=== PATIENT | female | born 1975 | race Caucasian/White ===

== ENCOUNTER 2024-05-27 22:25 | Outpatient (BNV) | payer OTHER, SELFPAY | END 2024-05-30 09:00 | PROVIDERS: Admitting Provider Psychiatry & Neurology Psychiatry; Visit Provider Internal Medicine | DX: R00.1 Bradycardia, unspecified (principal) | CPT/HCPCS: 93010 ==

== ENCOUNTER 2024-05-27 22:25 | Inpatient (IN) | payer OTHER, SELFPAY ==
[2024-05-28 00:16] VITALS: BP 124/60; PULSE 73; RESP 16; TEMP 36.8; O2SAT 100
[2024-05-28 00:17] VITALS: BMI 32.3
[2024-05-28] MEDS: traZODone HCL 50 MG TABLET PO (02:37)
[2024-05-28] MEDS: hydrOXYzine HCL 25 MG TABLET PO (02:37)
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
[2024-05-28] MEDS: Acetaminophen 325 MG TABLET 650 MG PO ×2 (05:20→15:52)
--- NOTE | 2024-05-28 07:10 | PC.NURSE ---
[facility] CALLED THIS MORNING BY TW TO VERIFY REMY METHADONE DOSE, , SPOKE WITH NURSE MARICARMEN GIL WHO VERIFIED SHE WAS GIVEN 180MG ON THE 14TH AND 6 BOTTLES OF 18OMG EACH WAS SENT HOME WITH HER. MAINTENANCE VERIFICATION FORM PROVIDED TO PHARMACY.
[2024-05-28 07:15] VITALS: BP 99/54; PULSE 67; RESP 16; TEMP 36.4; O2SAT 99
--- NOTE | 2024-05-28 07:21 | HE.PHANOTE ---
Re Methadone Pt receives 180mg from [facility], last dose was 05/18/24 but they gave her 6 take home bottles. Last day should have been 05/24/24.
[2024-05-28] MEDS: methADONE HCl 20 MG/2 ML ORAL.CONC 180 MG PO (08:39)
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
[2024-05-28 09:17] LABS: Alanine Aminotransferase 7 U/L (0-31); Albumin Level 3.5 g/dL (3.5-5.0); Anion Gap 12 (12-20); Aspartate Amino Transferase 18 U/L (5-31); Bilirubin Total 0.3 mg/dL (0.0-1.0); Blood Urea Nitrogen 11 mg/dL (9-16); Calcium 8.7 mg/dL (8.4-10.2); Carbon Dioxide 26 mmol/L (22-29); Chloride 106 mmol/L (96-108); Creatinine Clr Calc Pharmacy 71.7; Estimated Glomerular Filt Rate > 60; Glucose Random 134 mg/dL (60-115); Potassium 3.7 mmol/L (3.3-5.1); Sodium 140 mmol/L (135-145); Total Protein 6.1 g/dL (6.5-8.0)
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
[2024-05-28 14:00] LABS: Alkaline Phosphatase 53 U/L (39-117)
[2024-05-28 16:17] VITALS: BP 133/74
[2024-05-28] MEDS: cloNIDine HCL 0.1 MG TABLET PO (16:17)
[2024-05-28] MEDS: Omeprazole 20 MG CAPSULE.DR PO (16:17)
[2024-05-28 20:00] VITALS: BP 100/60; PULSE 60; RESP 16; TEMP 36.8; O2SAT 98
[2024-05-28] MEDS: busPIRone HCl 10 MG TABLET PO (20:33)
[2024-05-28] MEDS: Ziprasidone 80 MG CAPSULE PO (20:34)
[2024-05-28] MEDS: Propranolol HCL 10 MG TABLET PO (20:34)
--- NOTE | 2024-05-28 20:48 | PC.NURSE ---
Pt refused HS Seroquel, states I have allergy to Seroquel .
[2024-05-29] MEDS: Omeprazole 20 MG CAPSULE.DR PO ×2 (06:41→16:50)
[2024-05-29 07:50] VITALS: BP 104/59; PULSE 65; RESP 12; TEMP 37.4; O2SAT 98
[2024-05-29] MEDS: Acetaminophen 325 MG TABLET 650 MG PO (07:53)
[2024-05-29] MEDS: methADONE HCl 20 MG/2 ML ORAL.CONC 180 MG PO (08:03)
[2024-05-29 08:50] VITALS: BP 108/59; PULSE 65
[2024-05-29] MEDS: buPROPion HCl XL 300 MG TAB.ER.24H PO (08:50)
[2024-05-29] MEDS: Propranolol HCL 10 MG TABLET PO ×2 (08:50→21:23)
[2024-05-29] MEDS: busPIRone HCl 10 MG TABLET PO ×2 (08:50→21:24)
[2024-05-29] MEDS: Ziprasidone 80 MG CAPSULE PO ×2 (08:51→21:23)
[2024-05-29] MEDS: Oxymetazoline HCl 0.05 % Nasal 15 ML SPRAY 2 SPRAY NOSTRIL-B (08:52)
[2024-05-29 09:04] VITALS: BP 102/60; PULSE 64
[2024-05-29] MEDS: cloNIDine HCL 0.1 MG TABLET PO (09:08)
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
[2024-05-29] MEDS: Pseudoephedrine HCL 30 MG TABLET PO ×2 (10:36→16:52)
[2024-05-29 12:00] LABS: Cholesterol 147 mg/dL (<200); HDL Cholesterol 55 mg/dL (>40); LDL Cholesterol Calculated 75 mg/dL (<100); Triglycerides 85 mg/dL (<150)
[2024-05-29 12:03] LABS: Estimated Average Glucose 100 mg/dL; Hemoglobin A1C 103.6012 umol/L; Hemoglobin A1c % 5.1 % (<6.0); Total Hemoglobin (HGBA1C) 3256.6014 umol/L
[2024-05-29 12:15] LABS: Thyroid Stimulating Hormone 1.16 uIU/mL (0.32-4.0)
--- NOTE | 2024-05-29 16:43 | PC.NURSE ---
Pt requested PRN Clonidine for anxiety. RN assessed pt's BP 88/54 HR 63. RN encouraged pt to drink fluids and eat snacks, pt verbalized understanding. Informed pt BP would be rechecked following increased fluid intake.
[2024-05-29 16:55] VITALS: BP 88/54; PULSE 63
--- NOTE | 2024-05-29 16:55 | PC.NURSE ---
Addendum entered by Maria Del Carmen Roberts RN 05/29/24 18:07: BP rechecked at 1807, 100/56 HR 64. Pt declined dizziness/lightheadedness. Pt declined clonidine because I feel fine and it's not happening right now. Pt declined to elaborate on what was happening. Original Note: Pt requested PRN Clonidine for anxiety. RN assessed pt's BP 88/54 HR 63. RN informed pt clonidine would be held at this time d/t decreased BP. RN encouraged pt to drink fluids and eat snacks, pt verbalized understanding. Informed pt BP would be rechecked following increased fluid intake.
[2024-05-29] MEDS: hydrOXYzine HCL 50 MG TABLET PO (17:18)
[2024-05-29] MEDS: Nicotine Polacrilex 2 MG GUM 4 MG BUCCAL (17:24)
[2024-05-29 20:00] VITALS: BP 107/60; PULSE 62; RESP 18; TEMP 37.1; O2SAT 96
[2024-05-29 21:23] VITALS: BP 100/60; PULSE 80
[2024-05-30] MEDS: Omeprazole 20 MG CAPSULE.DR PO ×2 (06:28→15:32)
[2024-05-30 07:50] VITALS: BP 92/50; PULSE 59; RESP 14; TEMP 36.6; O2SAT 97
[2024-05-30] MEDS: methADONE HCl 20 MG/2 ML ORAL.CONC 180 MG PO (08:15)
[2024-05-30] MEDS: busPIRone HCl 10 MG TABLET PO ×2 (09:00→21:12)
[2024-05-30] MEDS: Ziprasidone 80 MG CAPSULE PO ×2 (09:00→21:12)
[2024-05-30] MEDS: buPROPion HCl XL 300 MG TAB.ER.24H PO (09:00)
[2024-05-30] MEDS: Pseudoephedrine HCL 30 MG TABLET PO ×2 (09:00→15:32)
--- NOTE | 2024-05-30 09:00 | ECG_ITS ---
Test Reason : QTc interval Blood Pressure : */* mmHG Vent. Rate : 52 BPM Atrial Rate : 52 BPM P-R Int : 150 ms QRS Dur : 82 ms QT Int : 468 ms P-R-T Axes : 55 63 48 degrees QTcB Int : 435 ms Sinus bradycardia Possible Left atrial enlargement Borderline ECG No previous ECGs available Referred By: Newton March Electronically Signed By: TERRIE DUENAS
[2024-05-30] MEDS: Nicotine 21 MG PATCH.TD24 TRANSDERMA (09:01)
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
[2024-05-30 15:29] VITALS: BP 120/64; PULSE 73
[2024-05-30] MEDS: cloNIDine HCL 0.1 MG TABLET PO (15:32)
[2024-05-30 20:00] VITALS: BP 94/60; PULSE 71; RESP 16; TEMP 36.5; O2SAT 99
[2024-05-30] MEDS: Propranolol HCL 10 MG TABLET PO (21:12)
[2024-05-31] MEDS: Omeprazole 20 MG CAPSULE.DR PO ×2 (06:33→15:40)
[2024-05-31 07:42] VITALS: BP 111/66; PULSE 66; RESP 16; TEMP 36.4; O2SAT 99
[2024-05-31] MEDS: methADONE HCl 20 MG/2 ML ORAL.CONC 180 MG PO (08:00)
[2024-05-31] MEDS: busPIRone HCl 10 MG TABLET PO ×2 (08:38→20:53)
[2024-05-31] MEDS: Ziprasidone 80 MG CAPSULE PO (08:38)
[2024-05-31] MEDS: Propranolol HCL 10 MG TABLET PO ×2 (08:38→20:53)
[2024-05-31] MEDS: buPROPion HCl XL 300 MG TAB.ER.24H PO (08:38)
[2024-05-31] MEDS: Nicotine 21 MG PATCH.TD24 TRANSDERMA (09:49)
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
[2024-05-31] MEDS: risperiDONE 1 MG TABLET PO ×3 (11:33→20:53)
[2024-05-31 15:42] VITALS: BP 100/62
[2024-05-31] MEDS: cloNIDine HCL 0.1 MG TABLET PO (15:42)
[2024-05-31] MEDS: Pseudoephedrine HCL 30 MG TABLET PO (17:13)
[2024-05-31 20:00] VITALS: BP 105/60; PULSE 74; TEMP 36.5; O2SAT 100
[2024-05-31 20:53] VITALS: BP 100/57; PULSE 74
[2024-06-01] MEDS: Omeprazole 20 MG CAPSULE.DR PO ×2 (05:45→16:50)
[2024-06-01 07:32] VITALS: BP 90/56; PULSE 82; RESP 16; TEMP 36.4; O2SAT 99
[2024-06-01] MEDS: methADONE HCl 20 MG/2 ML ORAL.CONC 180 MG PO (07:53)
[2024-06-01] MEDS: Nicotine 21 MG PATCH.TD24 TRANSDERMA (08:26)
[2024-06-01] MEDS: busPIRone HCl 10 MG TABLET PO ×2 (08:26→20:14)
[2024-06-01] MEDS: risperiDONE 1 MG TABLET PO (08:26)
[2024-06-01] MEDS: buPROPion HCl XL 300 MG TAB.ER.24H PO (08:26)
[2024-06-01] MEDS: hydrOXYzine HCL 50 MG TABLET PO (08:34)
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
[2024-06-01 20:00] VITALS: BP 102/54; PULSE 62; RESP 16; TEMP 36.9; O2SAT 94
[2024-06-01] MEDS: risperiDONE 3 MG TABLET PO (20:13)
[2024-06-02] MEDS: Omeprazole 20 MG CAPSULE.DR PO ×2 (05:53→16:19)
[2024-06-02 07:34] VITALS: BP 113/67; PULSE 72; RESP 16; TEMP 36.5; O2SAT 98
[2024-06-02] MEDS: methADONE HCl 20 MG/2 ML ORAL.CONC 180 MG PO (07:55)
[2024-06-02] MEDS: cloNIDine HCL 0.1 MG TABLET PO ×2 (08:04→14:52)
[2024-06-02] MEDS: busPIRone HCl 10 MG TABLET PO ×2 (08:05→21:11)
[2024-06-02] MEDS: Propranolol HCL 10 MG TABLET PO ×2 (08:05→21:11)
[2024-06-02] MEDS: risperiDONE 1 MG TABLET PO ×2 (08:05→14:46)
[2024-06-02] MEDS: buPROPion HCl XL 300 MG TAB.ER.24H PO (08:05)
[2024-06-02 14:52] VITALS: BP 125/72
[2024-06-02] MEDS: Nicotine 21 MG PATCH.TD24 TRANSDERMA (14:53)
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
[2024-06-02 20:00] VITALS: BP 101/59; PULSE 76; RESP 16; TEMP 36.6; O2SAT 97
[2024-06-02] MEDS: risperiDONE 3 MG TABLET PO (21:11)
[2024-06-03] MEDS: Omeprazole 20 MG CAPSULE.DR PO ×2 (06:29→16:54)
[2024-06-03 07:00] VITALS: BMI 32.9
[2024-06-03 07:43] VITALS: BP 133/61; PULSE 61; RESP 18; TEMP 36.4; O2SAT 99
[2024-06-03] MEDS: methADONE HCl 20 MG/2 ML ORAL.CONC 180 MG PO (07:51)
[2024-06-03] MEDS: buPROPion HCl XL 300 MG TAB.ER.24H PO (08:18)
[2024-06-03] MEDS: busPIRone HCl 10 MG TABLET PO ×2 (08:19→20:42)
[2024-06-03] MEDS: Propranolol HCL 10 MG TABLET PO ×2 (08:19→20:42)
[2024-06-03] MEDS: risperiDONE 2 MG TABLET PO (08:19)
[2024-06-03] MEDS: cloNIDine HCL 0.1 MG TABLET PO ×2 (08:29→16:59)
[2024-06-03] MEDS: Nicotine 21 MG PATCH.TD24 TRANSDERMA (12:42)
[2024-06-03] MEDS: hydrOXYzine HCL 50 MG TABLET PO ×2 (12:45→20:42)
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
[2024-06-03 16:59] VITALS: BP 126/82
[2024-06-03 20:00] VITALS: BP 110/62; PULSE 66; RESP 16; TEMP 36.8; O2SAT 97
[2024-06-03] MEDS: risperiDONE 3 MG TABLET PO (20:42)
[2024-06-04] MEDS: Omeprazole 20 MG CAPSULE.DR PO ×2 (06:22→16:57)
[2024-06-04 06:48] VITALS: BP 84/60; PULSE 68
[2024-06-04 07:40] VITALS: BP 104/58; PULSE 73; RESP 16; TEMP 36.4; O2SAT 97
[2024-06-04] MEDS: methADONE HCl 20 MG/2 ML ORAL.CONC 180 MG PO (07:42)
[2024-06-04 08:05] VITALS: BP 104/58; PULSE 73
[2024-06-04] MEDS: busPIRone HCl 10 MG TABLET PO ×2 (08:05→20:38)
[2024-06-04] MEDS: risperiDONE 2 MG TABLET PO (08:05)
[2024-06-04] MEDS: Propranolol HCL 10 MG TABLET PO ×2 (08:05→20:38)
[2024-06-04] MEDS: buPROPion HCl XL 300 MG TAB.ER.24H PO (08:06)
[2024-06-04 08:55] VITALS: BP 105/56; PULSE 64
[2024-06-04 10:02] VITALS: BP 108/58
[2024-06-04] MEDS: cloNIDine HCL 0.1 MG TABLET PO ×2 (10:02→20:37)
[2024-06-04] MEDS: hydrOXYzine HCL 50 MG TABLET PO (17:04)
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
[2024-06-04 20:00] VITALS: BP 93/60; PULSE 66; RESP 16; TEMP 36.8; O2SAT 96
[2024-06-04] MEDS: risperiDONE 2 MG TABLET 4 MG PO (20:38)
[2024-06-05] MEDS: Omeprazole 20 MG CAPSULE.DR PO ×2 (06:25→16:50)
[2024-06-05 07:41] VITALS: BP 89/48; PULSE 66; RESP 14; TEMP 36.8; O2SAT 94
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
[2024-06-05] MEDS: methADONE HCl 20 MG/2 ML ORAL.CONC 180 MG PO (09:29)
[2024-06-05] MEDS: busPIRone HCl 10 MG TABLET PO ×2 (09:39→20:26)
[2024-06-05] MEDS: Propranolol HCL 10 MG TABLET PO ×2 (09:39→20:26)
[2024-06-05 09:40] VITALS: BP 104/60; PULSE 68; RESP 16; TEMP 36.9; O2SAT 96
[2024-06-05] MEDS: buPROPion HCl XL 300 MG TAB.ER.24H PO (09:40)
[2024-06-05] MEDS: risperiDONE 2 MG TABLET PO (09:40)
[2024-06-05] MEDS: cloNIDine HCL 0.1 MG TABLET PO ×2 (09:42→16:56)
[2024-06-05 16:56] VITALS: BP 124/67
[2024-06-05 20:00] VITALS: BP 96/60; PULSE 63; RESP 16; TEMP 36.4; O2SAT 97
[2024-06-05] MEDS: risperiDONE 2 MG TABLET 4 MG PO (20:26)
[2024-06-06] MEDS: Omeprazole 20 MG CAPSULE.DR PO ×2 (06:45→16:46)
[2024-06-06 07:43] VITALS: BP 105/56; PULSE 68; RESP 16; TEMP 36.4; O2SAT 97
[2024-06-06] MEDS: methADONE HCl 20 MG/2 ML ORAL.CONC 180 MG PO (08:41)
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
[2024-06-06] MEDS: Propranolol HCL 10 MG TABLET PO ×2 (09:44→20:12)
[2024-06-06] MEDS: buPROPion HCl XL 300 MG TAB.ER.24H PO (09:44)
[2024-06-06] MEDS: risperiDONE 2 MG TABLET PO (09:44)
[2024-06-06] MEDS: busPIRone HCl 10 MG TABLET PO ×2 (09:45→20:12)
[2024-06-06 09:51] VITALS: BP 99/58
[2024-06-06] MEDS: cloNIDine HCL 0.1 MG TABLET PO ×2 (09:51→16:51)
[2024-06-06 14:15] LABS: Influenza A PCR NEGATIVE (Negative); Influenza B PCR NEGATIVE (Negative); Resp Syncy Virus RNA Qual PCR NEGATIVE (Negative); SARS COV2 PCR INHOUSE NEGATIVE (Negative)
[2024-06-06 16:51] VITALS: BP 94/64
[2024-06-06 20:00] VITALS: BP 96/60; PULSE 63; RESP 16; TEMP 36.6; O2SAT 97
[2024-06-06] MEDS: risperiDONE 2 MG TABLET 4 MG PO (20:12)
[2024-06-07] MEDS: Omeprazole 20 MG CAPSULE.DR PO ×2 (05:59→16:52)
[2024-06-07 07:30] VITALS: BP 92/54; PULSE 62; RESP 14; TEMP 36.7; O2SAT 95
[2024-06-07] MEDS: methADONE HCl 20 MG/2 ML ORAL.CONC 180 MG PO (08:09)
[2024-06-07] MEDS: risperiDONE 2 MG TABLET PO (09:18)
[2024-06-07] MEDS: buPROPion HCl XL 300 MG TAB.ER.24H PO (09:18)
[2024-06-07] MEDS: busPIRone HCl 10 MG TABLET PO ×2 (09:18→21:46)
[2024-06-07 09:44] VITALS: BP 101/52; PULSE 62
[2024-06-07 09:46] VITALS: BP 101/52; PULSE 62
[2024-06-07] MEDS: Propranolol HCL 10 MG TABLET PO ×2 (09:46→21:46)
[2024-06-07] MEDS: hydrOXYzine HCL 50 MG TABLET PO (09:49)
[2024-06-07 11:22] VITALS: BP 122/70
[2024-06-07] MEDS: cloNIDine HCL 0.1 MG TABLET PO ×2 (11:22→16:56)
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
[2024-06-07 16:55] VITALS: BP 110/69; TEMP 15
[2024-06-07] MEDS: OLANZapine ODT 10 MG TAB.RAPDIS 30 MG TRANSLINGU (21:43)
[2024-06-07 21:44] VITALS: BP 110/60; PULSE 86; RESP 18; TEMP 36.9; O2SAT 96
[2024-06-07] MEDS: guaiFENesin DM 200/20/10 ML 10 ML SYRUP PO (21:46)
[2024-06-08] MEDS: Omeprazole 20 MG CAPSULE.DR PO ×2 (06:22→16:14)
[2024-06-08 08:00] VITALS: BP 106/52; PULSE 62; RESP 16; TEMP 36.5; O2SAT 98
[2024-06-08] MEDS: methADONE HCl 20 MG/2 ML ORAL.CONC 180 MG PO (08:13)
[2024-06-08 08:46] VITALS: BP 106/52; PULSE 62
[2024-06-08] MEDS: buPROPion HCl XL 300 MG TAB.ER.24H PO (08:46)
[2024-06-08] MEDS: Propranolol HCL 10 MG TABLET PO ×2 (08:46→20:38)
[2024-06-08] MEDS: busPIRone HCl 10 MG TABLET PO ×2 (08:47→20:38)
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
[2024-06-08 12:41] LABS: Influenza A PCR NEGATIVE (Negative); Influenza B PCR NEGATIVE (Negative); Resp Syncy Virus RNA Qual PCR NEGATIVE (Negative); SARS COV2 PCR INHOUSE NEGATIVE (Negative)
[2024-06-08 13:25] VITALS: BP 129/71
[2024-06-08] MEDS: cloNIDine HCL 0.1 MG TABLET PO (13:25)
[2024-06-08 20:00] VITALS: BP 116/63; PULSE 67; TEMP 36.8; O2SAT 95
[2024-06-08 20:38] VITALS: BP 116/63; PULSE 81
[2024-06-08] MEDS: OLANZapine ODT 10 MG TAB.RAPDIS 30 MG TRANSLINGU (20:38)
[2024-06-09] MEDS: Omeprazole 20 MG CAPSULE.DR PO ×2 (06:23→17:12)
[2024-06-09 07:53] VITALS: BP 112/73; PULSE 69; RESP 14; TEMP 36.6; O2SAT 98
[2024-06-09] MEDS: methADONE HCl 20 MG/2 ML ORAL.CONC 180 MG PO (08:28)
[2024-06-09] MEDS: busPIRone HCl 10 MG TABLET PO ×2 (08:55→20:53)
[2024-06-09] MEDS: Propranolol HCL 10 MG TABLET PO ×2 (08:55→20:53)
[2024-06-09] MEDS: buPROPion HCl XL 300 MG TAB.ER.24H PO (08:55)
[2024-06-09] MEDS: cloNIDine HCL 0.1 MG TABLET PO ×2 (09:38→15:22)
[2024-06-09] MEDS: Nicotine 21 MG PATCH.TD24 TRANSDERMA (15:22)
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
[2024-06-09 20:00] VITALS: BP 121/63; PULSE 75; RESP 16; TEMP 37.1; O2SAT 96
[2024-06-09] MEDS: OLANZapine ODT 10 MG TAB.RAPDIS 30 MG TRANSLINGU (20:52)
[2024-06-10] MEDS: Omeprazole 20 MG CAPSULE.DR PO ×2 (06:53→16:49)
[2024-06-10 07:00] VITALS: BMI 33.7
[2024-06-10 08:00] VITALS: BP 93/54; PULSE 61; RESP 16; TEMP 36.9; O2SAT 98
[2024-06-10] MEDS: methADONE HCl 20 MG/2 ML ORAL.CONC 180 MG PO (09:20)
[2024-06-10 09:21] VITALS: BP 109/64; PULSE 61
[2024-06-10] MEDS: busPIRone HCl 10 MG TABLET PO ×2 (09:21→20:30)
[2024-06-10] MEDS: cloNIDine HCL 0.1 MG TABLET PO ×2 (09:21→14:18)
[2024-06-10] MEDS: Propranolol HCL 10 MG TABLET PO ×2 (09:21→20:30)
[2024-06-10] MEDS: Nicotine 21 MG PATCH.TD24 TRANSDERMA (09:22)
[2024-06-10] MEDS: buPROPion HCl XL 300 MG TAB.ER.24H PO (09:22)
[2024-06-10] MEDS: Lithium Carbonate ER 450 MG TABLET.ER PO ×2 (12:08→20:30)
[2024-06-10 14:18] VITALS: BP 95/61
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
[2024-06-10 20:00] VITALS: BP 106/61; PULSE 62; RESP 16; TEMP 36.4; O2SAT 97
[2024-06-10] MEDS: OLANZapine ODT 10 MG TAB.RAPDIS 30 MG TRANSLINGU (20:30)
[2024-06-11] MEDS: Omeprazole 20 MG CAPSULE.DR PO ×2 (06:33→17:00)
[2024-06-11 07:56] VITALS: BP 98/50; PULSE 66; RESP 14; TEMP 36.7; O2SAT 97
[2024-06-11] MEDS: methADONE HCl 20 MG/2 ML ORAL.CONC 180 MG PO (08:11)
[2024-06-11] MEDS: busPIRone HCl 10 MG TABLET PO ×2 (08:29→21:34)
[2024-06-11] MEDS: Lithium Carbonate ER 450 MG TABLET.ER PO ×2 (08:29→21:33)
[2024-06-11] MEDS: Propranolol HCL 10 MG TABLET PO ×2 (08:29→21:33)
[2024-06-11] MEDS: buPROPion HCl XL 300 MG TAB.ER.24H PO (08:29)
[2024-06-11 10:21] VITALS: BP 136/68
[2024-06-11] MEDS: cloNIDine HCL 0.1 MG TABLET PO (10:21)
[2024-06-11 14:06] LABS: Appearance Urine Clear; Color Urine Yellow; Glucose Urine UA Negative (Negative); Leukocyte Esterase Urine Moderate (2+) (Negative); Nitrite Urine Negative (Negative); UMIC TRIGGER UACC YES; Urine Blood Negative (Negative); Urine Ketones Trace mg/dL (Negative); Urine Protein Negative (Neg-Trace)
[2024-06-11 14:13] LABS: Bacteria Urine 1+ (None Seen); Hyaline Casts Urine 0-2 /LPF (0-2); RBC Urine 0-2 /HPF (0-2); Squamous Epithelial Cell Urine 0-2 /HPF (0-2); UACC Culture Trigger YES
[2024-06-11] MEDS: Nitrofurantoin Monohyd/M-Cryst 100 MG CAPSULE PO (14:34)
[2024-06-11 14:56] LABS: MANUAL DIFF FLAG NO
[2024-06-11 14:58] LABS: Basophils Absolute Auto 0.1 X10*3/uL (0.0-0.2); Basophils Percent Auto 0.6 % (0-2); Eosinophils Absolute Auto 0.3 X10*3/uL (0.0-0.4); Eosinophils Percent Auto 3.3 % (0-4); Hematocrit 37.1 % (37.0-47.0); Hemoglobin 12.1 g/dl (12.0-16.0); Imm Gran Abs Auto 0.04 X10*3/uL (0.00-0.03); Imm Gran Pct Auto 0.4 % (0.0-0.4); Lymphocytes Absolute Auto 2.3 X10*3/uL (1.2-4.9); Lymphocytes Percent Auto 23.2 % (20-40); Mean Corpuscular HGB Conc 32.6 g/dl (31.0-35.0); Mean Corpuscular Hemoglobin 28.1 pg (27.0-33.0); Mean Corpuscular Volume 86.3 fL (80.0-98.0); Mean Platelet Volume 9.3 fL (9.4-12.3); Monocytes Absolute Auto 0.6 X10*3/uL (0.1-1.2); Monocytes Percent Auto 5.9 % (2-11); Neutrophils Absolute Auto 6.6 x10*3/uL (2.0-8.3); Neutrophils Percent Auto 66.6 % (45-73); Platelet Count 320 X10*3/uL (160-400); Red Cell Distribution Width 13.5 % (11.0-16.0); White Blood Count 9.9 X10*3/uL (4.8-10.8)
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
[2024-06-11 15:15] LABS: Anion Gap 12 (12-20); Blood Urea Nitrogen 19 mg/dL (9-16); Calcium 9.3 mg/dL (8.4-10.2); Carbon Dioxide 27 mmol/L (22-29); Chloride 108 mmol/L (96-108); Creatinine Clr Calc Pharmacy 74.1; Estimated Glomerular Filt Rate > 60; Glucose Random 94 mg/dL (60-115); Potassium 4.4 mmol/L (3.3-5.1); Sodium 143 mmol/L (135-145)
[2024-06-11 20:00] VITALS: BP 96/58; PULSE 62; RESP 16; TEMP 36.4; O2SAT 96
[2024-06-11 21:33] VITALS: BP 96/58; PULSE 62
[2024-06-11] MEDS: OLANZapine ODT 10 MG TAB.RAPDIS 20 MG TRANSLINGU (21:33)
[2024-06-12] MEDS: Nitrofurantoin Monohyd/M-Cryst 100 MG CAPSULE PO ×2 (01:57→22:13)
[2024-06-12] MEDS: Omeprazole 20 MG CAPSULE.DR PO ×2 (06:33→15:56)
[2024-06-12] MEDS: methADONE HCl 20 MG/2 ML ORAL.CONC 180 MG PO (08:05)
[2024-06-12 08:20] VITALS: BP 105/58; PULSE 63; RESP 14; TEMP 36.4; O2SAT 96
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
[2024-06-12 09:15] VITALS: BP 108/62; PULSE 66
[2024-06-12] MEDS: busPIRone HCl 10 MG TABLET PO ×2 (09:15→20:22)
[2024-06-12] MEDS: buPROPion HCl XL 300 MG TAB.ER.24H PO (09:15)
[2024-06-12] MEDS: Lithium Carbonate ER 450 MG TABLET.ER PO ×2 (09:15→20:23)
[2024-06-12] MEDS: Propranolol HCL 10 MG TABLET PO ×2 (09:15→20:22)
[2024-06-12 09:19] VITALS: BP 108/62; PULSE 66
[2024-06-12] MEDS: cloNIDine HCL 0.1 MG TABLET PO ×2 (09:31→15:20)
[2024-06-12] MEDS: Nicotine 21 MG PATCH.TD24 TRANSDERMA (09:31)
[2024-06-12] MEDS: guaiFENesin DM 200/20/10 ML 10 ML SYRUP PO (09:31)
[2024-06-12 15:20] VITALS: BP 108/54
[2024-06-12 20:00] VITALS: BP 110/70; PULSE 70; RESP 18; TEMP 36.8; O2SAT 96
[2024-06-12 20:22] VITALS: BP 110/70; PULSE 70
[2024-06-12] MEDS: OLANZapine ODT 10 MG TAB.RAPDIS 20 MG TRANSLINGU (20:24)
[2024-06-13] MEDS: Omeprazole 20 MG CAPSULE.DR PO ×2 (06:35→16:43)
[2024-06-13 07:52] VITALS: BP 104/56; PULSE 64; RESP 16; TEMP 36.3; O2SAT 97
[2024-06-13] MEDS: methADONE HCl 20 MG/2 ML ORAL.CONC 180 MG PO (07:56)
[2024-06-13 08:04] VITALS: BP 137/94; PULSE 79; RESP 16; TEMP 36.5; O2SAT 98
[2024-06-13] MEDS: Nicotine 21 MG PATCH.TD24 TRANSDERMA (08:47)
[2024-06-13] MEDS: buPROPion HCl XL 300 MG TAB.ER.24H PO (08:47)
[2024-06-13] MEDS: busPIRone HCl 10 MG TABLET PO ×2 (08:47→20:20)
[2024-06-13] MEDS: Propranolol HCL 10 MG TABLET PO ×2 (08:47→20:20)
[2024-06-13] MEDS: Lithium Carbonate ER 450 MG TABLET.ER PO ×2 (08:48→20:20)
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
[2024-06-13 09:56] VITALS: BP 126/69
[2024-06-13] MEDS: cloNIDine HCL 0.1 MG TABLET PO ×2 (09:56→17:04)
[2024-06-13] MEDS: Nitrofurantoin Monohyd/M-Cryst 100 MG CAPSULE PO ×2 (09:56→20:24)
[2024-06-13 17:04] VITALS: BP 111/60
[2024-06-13 20:00] VITALS: BP 128/67; PULSE 66; RESP 18; TEMP 36.7; O2SAT 96
[2024-06-13] MEDS: OLANZapine ODT 10 MG TAB.RAPDIS 20 MG TRANSLINGU (20:20)
[2024-06-13] MEDS: Mineral Oil/Petrolatum,White 106 GM Tube 1 APPL TOPICAL (22:12)
[2024-06-14] MEDS: Omeprazole 20 MG CAPSULE.DR PO ×2 (06:41→15:36)
[2024-06-14 07:48] VITALS: BP 107/59; PULSE 74; RESP 14; TEMP 36.4; O2SAT 95
[2024-06-14] MEDS: methADONE HCl 20 MG/2 ML ORAL.CONC 180 MG PO (08:01)
[2024-06-14] MEDS: Propranolol HCL 10 MG TABLET PO (08:46)
[2024-06-14] MEDS: buPROPion HCl XL 300 MG TAB.ER.24H PO (08:46)
[2024-06-14] MEDS: busPIRone HCl 10 MG TABLET PO ×2 (08:47→21:01)
[2024-06-14] MEDS: Nicotine 21 MG PATCH.TD24 TRANSDERMA (08:47)
[2024-06-14 10:59] LABS: Lithium 0.79 mmol/L (0.60-1.20)
[2024-06-14] MEDS: Nitrofurantoin Monohyd/M-Cryst 100 MG CAPSULE PO ×2 (11:12→21:00)
[2024-06-14] MEDS: Lithium Carbonate ER 450 MG TABLET.ER PO ×2 (11:12→21:00)
[2024-06-14 11:39] VITALS: BP 96/54
[2024-06-14] MEDS: cloNIDine HCL 0.1 MG TABLET PO ×2 (11:39→19:19)
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
[2024-06-14 19:15] VITALS: BP 111/55; PULSE 65; RESP 18; TEMP 36.2; O2SAT 97
[2024-06-14 19:19] VITALS: BP 111/55
[2024-06-14] MEDS: OLANZapine ODT 10 MG TAB.RAPDIS 20 MG TRANSLINGU (21:00)
[2024-06-14] MEDS: Artificial Tears 15 ML DROPS 2 DROP EYE-BOTH (21:13)
[2024-06-14 21:35] VITALS: BP 89/52; PULSE 57
[2024-06-14] MEDS: Mineral Oil/Petrolatum,White 106 GM Tube 1 APPL TOPICAL (21:35)
[2024-06-15] MEDS: Omeprazole 20 MG CAPSULE.DR PO ×2 (06:36→17:28)
[2024-06-15 07:35] VITALS: BP 130/85; PULSE 70; RESP 16; TEMP 36.7; O2SAT 98
[2024-06-15] MEDS: methADONE HCl 20 MG/2 ML ORAL.CONC 180 MG PO (08:13)
[2024-06-15 09:04] VITALS: BP 103/59; PULSE 72
[2024-06-15] MEDS: Lithium Carbonate ER 450 MG TABLET.ER PO ×2 (09:06→20:45)
[2024-06-15] MEDS: Propranolol HCL 10 MG TABLET PO ×2 (09:06→20:45)
[2024-06-15] MEDS: buPROPion HCl XL 300 MG TAB.ER.24H PO (09:07)
[2024-06-15] MEDS: Nitrofurantoin Monohyd/M-Cryst 100 MG CAPSULE PO ×2 (09:07→22:15)
[2024-06-15] MEDS: cloNIDine HCL 0.1 MG TABLET PO ×2 (09:07→14:31)
[2024-06-15] MEDS: busPIRone HCl 10 MG TABLET PO ×2 (09:07→20:45)
[2024-06-15] MEDS: Nicotine 21 MG PATCH.TD24 TRANSDERMA (09:08)
[2024-06-15] MEDS: Artificial Tears 15 ML DROPS 2 DROP EYE-BOTH ×2 (12:25→22:19)
[2024-06-15 14:29] VITALS: BP 99/58; PULSE 65; O2SAT 100
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
[2024-06-15 20:00] VITALS: BP 102/60; PULSE 63; RESP 16; TEMP 36.3; O2SAT 96
[2024-06-15] MEDS: OLANZapine ODT 10 MG TAB.RAPDIS 20 MG TRANSLINGU (20:44)
[2024-06-16 04:47] VITALS: BP 99/57
[2024-06-16] MEDS: cloNIDine HCL 0.1 MG TABLET PO ×2 (04:47→14:58)
[2024-06-16] MEDS: Omeprazole 20 MG CAPSULE.DR PO ×2 (06:55→16:30)
[2024-06-16 07:40] VITALS: BP 96/51; PULSE 67; RESP 14; TEMP 36.6; O2SAT 96
[2024-06-16] MEDS: methADONE HCl 20 MG/2 ML ORAL.CONC 180 MG PO (08:22)
[2024-06-16] MEDS: buPROPion HCl XL 300 MG TAB.ER.24H PO (08:39)
[2024-06-16] MEDS: Lithium Carbonate ER 450 MG TABLET.ER PO ×2 (08:39→20:36)
[2024-06-16] MEDS: busPIRone HCl 10 MG TABLET PO ×2 (08:39→20:36)
[2024-06-16 08:40] VITALS: BP 110/58; PULSE 60
[2024-06-16] MEDS: Propranolol HCL 10 MG TABLET PO ×2 (08:40→20:34)
[2024-06-16] MEDS: Nitrofurantoin Monohyd/M-Cryst 100 MG CAPSULE PO (09:07)
[2024-06-16] MEDS: Artificial Tears 15 ML DROPS 2 DROP EYE-BOTH ×2 (09:50→20:36)
[2024-06-16 12:39] LABS: Lithium 1.19 mmol/L (0.60-1.20)
[2024-06-16 12:46] LABS: Anion Gap 9 (12-20); Blood Urea Nitrogen 16 mg/dL (9-16); Carbon Dioxide 30 mmol/L (22-29); Chloride 103 mmol/L (96-108); Creatinine Clr Calc Pharmacy 74.9; Estimated Glomerular Filt Rate > 60; Glucose Random 75 mg/dL (60-115); Potassium 4.4 mmol/L (3.3-5.1); Sodium 138 mmol/L (135-145)
[2024-06-16 14:58] VITALS: BP 110/54
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
[2024-06-16] MEDS: hydrOXYzine HCL 50 MG TABLET PO (16:30)
[2024-06-16 20:00] VITALS: BP 106/60; PULSE 69; RESP 16; TEMP 36.6; O2SAT 96
[2024-06-16] MEDS: OLANZapine ODT 10 MG TAB.RAPDIS 20 MG TRANSLINGU (20:35)
[2024-06-17] MEDS: Omeprazole 20 MG CAPSULE.DR PO ×2 (06:39→16:12)
[2024-06-17 07:00] VITALS: BMI 35.4
[2024-06-17 07:47] VITALS: BP 119/67; PULSE 67; RESP 14; TEMP 36.2; O2SAT 97
[2024-06-17] MEDS: methADONE HCl 20 MG/2 ML ORAL.CONC 180 MG PO (08:00)
[2024-06-17] MEDS: Nicotine 21 MG PATCH.TD24 TRANSDERMA (08:50)
[2024-06-17] MEDS: busPIRone HCl 10 MG TABLET PO ×2 (08:50→21:38)
[2024-06-17] MEDS: buPROPion HCl XL 300 MG TAB.ER.24H PO (08:50)
[2024-06-17] MEDS: Lithium Carbonate ER 450 MG TABLET.ER PO (08:50)
[2024-06-17 08:57] VITALS: BP 119/67; PULSE 67
[2024-06-17] MEDS: Propranolol HCL 10 MG TABLET PO ×2 (08:57→21:38)
[2024-06-17 08:58] VITALS: BP 119/67
[2024-06-17] MEDS: cloNIDine HCL 0.1 MG TABLET PO ×2 (08:58→13:50)
[2024-06-17] MEDS: Magnesium Hydrox/Alum Hydrox 30 ML ORAL.SUSP PO (11:54)
[2024-06-17 13:49] VITALS: BP 110/57; PULSE 72; TEMP 36.7
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
[2024-06-17 21:00] VITALS: BP 110/68; PULSE 70; TEMP 36.6; O2SAT 98
[2024-06-17] MEDS: OLANZapine ODT 10 MG TAB.RAPDIS 20 MG TRANSLINGU (21:38)
[2024-06-18] MEDS: Omeprazole 20 MG CAPSULE.DR PO ×2 (06:37→16:20)
[2024-06-18 07:35] VITALS: BP 107/53; PULSE 64; RESP 14; TEMP 36.5; O2SAT 97
[2024-06-18] MEDS: methADONE HCl 20 MG/2 ML ORAL.CONC 180 MG PO (08:06)
[2024-06-18] MEDS: Lithium Carbonate ER 300 MG TABLET.ER PO (08:27)
[2024-06-18] MEDS: Nicotine 21 MG PATCH.TD24 TRANSDERMA (08:27)
[2024-06-18] MEDS: busPIRone HCl 10 MG TABLET PO ×2 (08:27→20:12)
[2024-06-18] MEDS: buPROPion HCl XL 300 MG TAB.ER.24H PO (08:27)
[2024-06-18 08:29] VITALS: BP 107/53
[2024-06-18 11:26] VITALS: BP 113/67
[2024-06-18] MEDS: cloNIDine HCL 0.1 MG TABLET PO ×2 (11:26→16:34)
[2024-06-18] MEDS: hydrOXYzine HCL 50 MG TABLET PO (14:23)
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
[2024-06-18 16:31] VITALS: BP 110/60
[2024-06-18 20:00] VITALS: BP 109/71; PULSE 71; RESP 16; TEMP 36.6; O2SAT 98
[2024-06-18] MEDS: OLANZapine ODT 10 MG TAB.RAPDIS 20 MG TRANSLINGU (20:12)
[2024-06-18] MEDS: Lithium Carbonate ER 450 MG TABLET.ER PO (20:13)
[2024-06-18] MEDS: Propranolol HCL 10 MG TABLET PO (20:13)
[2024-06-19 04:51] VITALS: BP 121/66
[2024-06-19] MEDS: cloNIDine HCL 0.1 MG TABLET PO ×2 (04:51→16:03)
[2024-06-19] MEDS: Milk of Magnesia 30 ML ORAL.SUSP PO (04:54)
[2024-06-19] MEDS: Omeprazole 20 MG CAPSULE.DR PO ×2 (06:23→16:03)
[2024-06-19] MEDS: methADONE HCl 20 MG/2 ML ORAL.CONC 180 MG PO (07:46)
[2024-06-19 08:00] VITALS: BP 104/59; PULSE 61; RESP 14; TEMP 36.1; O2SAT 96
[2024-06-19] MEDS: Nicotine 21 MG PATCH.TD24 TRANSDERMA (08:46)
[2024-06-19 08:47] VITALS: BP 110/60
[2024-06-19] MEDS: Lithium Carbonate ER 300 MG TABLET.ER PO (08:47)
[2024-06-19] MEDS: Propranolol HCL 10 MG TABLET PO ×2 (08:47→20:25)
[2024-06-19] MEDS: buPROPion HCl XL 300 MG TAB.ER.24H PO (08:47)
[2024-06-19] MEDS: busPIRone HCl 10 MG TABLET PO ×2 (08:47→20:25)
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
[2024-06-19] MEDS: bisacodyL 5 MG TABLET.DR 10 MG PO (14:12)
[2024-06-19 16:03] VITALS: BP 117/64
[2024-06-19 20:00] VITALS: BP 99/63; PULSE 67; RESP 16; TEMP 36.3; O2SAT 100
[2024-06-19] MEDS: Lithium Carbonate ER 450 MG TABLET.ER PO (20:25)
[2024-06-19] MEDS: OLANZapine ODT 10 MG TAB.RAPDIS 20 MG TRANSLINGU (20:25)
[2024-06-20 00:55] VITALS: BP 103/68
[2024-06-20] MEDS: cloNIDine HCL 0.1 MG TABLET PO ×3 (00:55→18:50)
[2024-06-20] MEDS: Milk of Magnesia 30 ML ORAL.SUSP PO ×2 (00:55→11:55)
[2024-06-20] MEDS: Omeprazole 20 MG CAPSULE.DR PO ×2 (05:29→16:42)
[2024-06-20] MEDS: hydrOXYzine HCL 50 MG TABLET PO ×2 (05:29→15:35)
[2024-06-20] MEDS: methADONE HCl 20 MG/2 ML ORAL.CONC 180 MG PO (07:56)
[2024-06-20 08:00] VITALS: BP 104/61; PULSE 60; RESP 14; TEMP 36.3; O2SAT 98
[2024-06-20] MEDS: Nicotine 21 MG PATCH.TD24 TRANSDERMA (08:22)
[2024-06-20] MEDS: busPIRone HCl 10 MG TABLET PO ×2 (08:23→22:28)
[2024-06-20] MEDS: buPROPion HCl XL 300 MG TAB.ER.24H PO (08:23)
[2024-06-20] MEDS: Lithium Carbonate ER 300 MG TABLET.ER PO (08:23)
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
[2024-06-20 18:48] VITALS: BP 113/64; PULSE 68
[2024-06-20 22:25] VITALS: BP 113/64; PULSE 68; RESP 16; TEMP 36.7; O2SAT 98
[2024-06-20] MEDS: Lithium Carbonate ER 450 MG TABLET.ER PO (22:27)
[2024-06-20] MEDS: OLANZapine ODT 10 MG TAB.RAPDIS 20 MG TRANSLINGU (22:27)
[2024-06-20] MEDS: Propranolol HCL 10 MG TABLET PO (22:28)
--- NOTE | 2024-06-21 05:40 | PC.NURSE ---
reports dentures that were at bedside in cup are now missing.
[2024-06-21 06:17] VITALS: BP 116/60
[2024-06-21] MEDS: Omeprazole 20 MG CAPSULE.DR PO ×2 (06:17→17:23)
[2024-06-21] MEDS: cloNIDine HCL 0.1 MG TABLET PO ×3 (06:17→19:43)
[2024-06-21] MEDS: methADONE HCl 20 MG/2 ML ORAL.CONC 180 MG PO (07:59)
[2024-06-21 08:00] VITALS: BP 95/58; PULSE 60; RESP 16; TEMP 36.8; O2SAT 95
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
[2024-06-21] MEDS: Lithium Carbonate ER 300 MG TABLET.ER PO (10:10)
[2024-06-21] MEDS: buPROPion HCl XL 300 MG TAB.ER.24H PO (10:10)
[2024-06-21] MEDS: Propranolol HCL 10 MG TABLET PO ×2 (10:10→22:05)
[2024-06-21] MEDS: Nicotine 21 MG PATCH.TD24 TRANSDERMA (10:11)
[2024-06-21] MEDS: busPIRone HCl 10 MG TABLET PO ×2 (10:11→22:05)
[2024-06-21 12:49] VITALS: BP 112/65
[2024-06-21 19:43] VITALS: BP 121/60
[2024-06-21 20:31] LABS: Lithium 0.97 mmol/L (0.60-1.20)
[2024-06-21 20:36] LABS: Anion Gap 10 (12-20); Blood Urea Nitrogen 11 mg/dL (9-16); Calcium 8.8 mg/dL (8.4-10.2); Carbon Dioxide 28 mmol/L (22-29); Chloride 107 mmol/L (96-108); Creatinine Clr Calc Pharmacy 79.6; Estimated Glomerular Filt Rate > 60; Glucose Random 94 mg/dL (60-115); Potassium 4.5 mmol/L (3.3-5.1); Sodium 140 mmol/L (135-145)
[2024-06-21 21:59] VITALS: BP 104/60; PULSE 59; RESP 16; TEMP 36.3; O2SAT 96
[2024-06-21] MEDS: Lithium Carbonate ER 450 MG TABLET.ER PO (22:06)
[2024-06-21] MEDS: OLANZapine ODT 10 MG TAB.RAPDIS 20 MG TRANSLINGU (22:06)
[2024-06-22 05:35] VITALS: BP 104/66
[2024-06-22] MEDS: cloNIDine HCL 0.1 MG TABLET PO ×2 (05:35→13:53)
[2024-06-22] MEDS: Omeprazole 20 MG CAPSULE.DR PO ×2 (05:35→16:21)
[2024-06-22 08:00] VITALS: BP 116/68; PULSE 58; RESP 16; TEMP 36.2; O2SAT 99
[2024-06-22] MEDS: methADONE HCl 20 MG/2 ML ORAL.CONC 180 MG PO (08:13)
[2024-06-22] MEDS: buPROPion HCl XL 300 MG TAB.ER.24H PO (08:51)
[2024-06-22] MEDS: busPIRone HCl 10 MG TABLET PO ×2 (08:51→20:29)
[2024-06-22] MEDS: Nicotine 21 MG PATCH.TD24 TRANSDERMA (08:52)
[2024-06-22] MEDS: Lithium Carbonate ER 300 MG TABLET.ER PO (08:52)
[2024-06-22 08:53] VITALS: BP 116/68; PULSE 61
[2024-06-22] MEDS: Propranolol HCL 10 MG TABLET PO ×2 (08:53→20:29)
[2024-06-22 13:53] VITALS: BP 130/70
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
[2024-06-22 20:00] VITALS: BP 97/60; PULSE 62; RESP 16; TEMP 36.4; O2SAT 95
[2024-06-22] MEDS: Lithium Carbonate ER 450 MG TABLET.ER PO (20:29)
[2024-06-22] MEDS: OLANZapine ODT 10 MG TAB.RAPDIS 20 MG TRANSLINGU (20:29)
[2024-06-23 02:57] VITALS: BP 117/60
[2024-06-23] MEDS: cloNIDine HCL 0.1 MG TABLET PO ×2 (02:57→10:37)
[2024-06-23] MEDS: Omeprazole 20 MG CAPSULE.DR PO (06:05)
[2024-06-23] MEDS: methADONE HCl 20 MG/2 ML ORAL.CONC 180 MG PO (07:35)
[2024-06-23 07:47] VITALS: BP 127/71; PULSE 58; RESP 16; TEMP 36.4; O2SAT 98
[2024-06-23] MEDS: buPROPion HCl XL 300 MG TAB.ER.24H PO (08:24)
[2024-06-23 08:26] VITALS: PULSE 64
[2024-06-23] MEDS: busPIRone HCl 10 MG TABLET PO (08:27)
[2024-06-23] MEDS: Propranolol HCL 10 MG TABLET PO (08:28)
[2024-06-23] MEDS: Lithium Carbonate ER 300 MG TABLET.ER PO (08:28)
[2024-06-23] MEDS: Nicotine 21 MG PATCH.TD24 TRANSDERMA (08:29)
[2024-06-23 10:36] VITALS: BP 102/57; PULSE 60
== END 2024-06-23 11:25 | disposition home or self-care (01) | DRG 885 ==
PROVIDERS: Psychiatry & Neurology Psychiatry; Registered Nurse; Social Worker; Admitting Provider Psychiatry & Neurology Psychiatry; Visit Provider Psychiatry & Neurology Psychiatry
DX: F20.9 Schizophrenia, unspecified (principal); F11.20 Opioid dependence, uncomplicated; F14.10 Cocaine abuse, uncomplicated; F17.210 Nicotine dependence, cigarettes, uncomplicated; Z71.6 Tobacco abuse counseling; F43.10 Post-traumatic stress disorder, unspecified; Z20.822 Contact with and (suspected) exposure to COVID-19; Z79.899 Other long term (current) drug therapy; K21.9 Gastro-esophageal reflux disease without esophagitis
CPT/HCPCS: 0241U; 36415; 80048; 80053; 80061; 80178; 81001; 81003; 83036; 84443; 85025; 87086; 93005

== ENCOUNTER → 2024-05-27 22:25 | Outpatient (BNV) | payer OTHER, SELFPAY | PROVIDERS: Admitting Provider Psychiatry & Neurology Psychiatry; Visit Provider Student in an Organized Health Care Education/Training Program | DX: Z00.8 Encounter for other general examination (principal) | CPT/HCPCS: 99429 ==

== ENCOUNTER → 2024-05-27 22:25 | Outpatient (BNV) | payer OTHER, SELFPAY | PROVIDERS: Admitting Provider Psychiatry & Neurology Psychiatry; Visit Provider Psychiatry & Neurology Psychiatry | DX: F20.9 Schizophrenia, unspecified (principal); F43.10 Post-traumatic stress disorder, unspecified; F11.90 Opioid use, unspecified, uncomplicated; F14.10 Cocaine abuse, uncomplicated | CPT/HCPCS: 90792; 99232 ==